=== PATIENT | male | born 1955 | race Caucasian/White ===

== ENCOUNTER 2017-02-20 06:55 | Day surgery (SDC) | payer BC ==
[~2017-02-20 06:55] MED LIST: Lactated Ringers 1,000 ML IV SCH; Lidocaine 1%/Sod Bicarbonate in NS 8.4% 1 ML Syringe IV PRN; Sodium Chloride 0.9% 10 ML Syringe FLUSH PRN
--- NOTE | 2017-02-20 07:22 | PCM.PREANE ---
Preanesthetic Assessment - Anesthesia/Transfusion/Family Hx Anesthesia History: Prior Anesthesia Without Reaction Type of Anesthesia Reaction: Unknown Family History of Anesthesia Reaction: No Transfusion History: No Prior Transfusion(s) Type of Transfusion Reactions: Reports: Unknown Intubation History: Unknown - Review of Systems General: No Symptoms Pulmonary: Other (pt has asthma, and non productive cough, VENUS with CPAP) Cardiovascular: Other (HTN controlled wit hemdication ) Gastrointestinal: Other (GERD) Neurological: No Symptoms Other: Reports: Easy Bruising - Physical Assessment NPO Status Date: 02/19/17 NPO Status Time: 22:00 Pulse: 75 O2 Sat by Pulse Oximetry: 97 Respiratory Rate: 16 Blood Pressure: 157/81 Temperature: 36.4 C Height: 1.68 m Weight: 98.883 kg ASA Class: 2 Mental Status: Alert & Oriented x3 Dentition: Reports: Normal Dentition Thyro-Mental Finger Breadths: 3 Mouth Opening Finger Breadths: 3 ROM/Head Extension: Limited/Partial (cervical neck fuision) Lungs: Clear to auscultation, Normal respiratory effort Cardiovascular: Regular Rate, Regular Rhythm - Allergies Allergies/Adverse Reactions: Allergies Allergy/AdvReac Type Severity Reaction Status Date / Time indomethacin Allergy Other Verified 02/19/17 17:24 - Blood Blood Available: No Product(s) Available: None - Anesthesia Plan Pre-Op Medication Ordered: Other - Acknowledgements Anesthesia Type Planned: MAC Pt an Appropriate Candidate for the Planned Anesthesia: Yes Alternatives and Risks of Anesthesia Discussed w Pt/Guardian: Yes Pt/Guardian Understands and Agrees with Anesthesia Plan: Yes PreAnesthesia Questionnaire HEENT History: Reports: Allergic rhinitis, Impaired vision Cardiovascular History: Reports: Hypertension Respiratory History: Reports: Asthma, Sleep apnea Gastrointestinal History: Reports: GERD, Other (see below) Other Gastrointestinal History: umbilical hernia Genitourinary History: Reports: None 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 Neurological History: Reports: None Psychiatric History: Reports: None Endocrine/Metabolic History: Reports: None Hematologic History: Reports: None Immunologic History: Reports: None Oncologic (Cancer) History: Reports: None Dermatologic History: Reports: None - Past Surgical History Head Surgeries/Procedures: Reports: None GI Surgical History: Reports: Colonoscopy, Hernia, inguinal Musculoskeletal Surgical History: Reports: Other (see below) Other Musculoskeletal Surgeries/Procedures:: neck surgery - SUBSTANCE USE Smoking Status *Q: Never Smoker Recreational Drug Use History: No - HOME MEDS Home Medications: Home Meds Albuterol Sulfate [Proair Hfa] 1 puff INH Q4H PRN 02/19/17 [History] Budesonide/Formoterol [Symbicort 160-4.5 MCG] 2 puff INH BID 02/19/17 [History] Fish Oil/[place]-3 Fatty Acids [Fish Oil 1,000 MG] 1 g PO DAILY 02/19/17 [History] Fluticasone Propionate [Flonase] 1 spray NASBOTH DAILY 02/19/17 [History] Losartan/Hydrochlorothiazide [Losartan-HCTZ 50-12.5 MG] 1 tab PO DAILY 02/19/17 [History] Multivitamin [Multivitamins] 1 tab PO DAILY 02/19/17 [History] Omeprazole Magnesium [Prilosec Otc] 20 mg PO DAILY 02/19/17 [History] Ondansetron [Zofran ODT] 4 mg PO TID PRN 02/19/17 [History] - CURRENT (IN HOUSE) MEDS Current Meds: Current Medications Lactated Ringer's (Ringers, Lactated) 1,000 mls @ 125 mls/hr IV ASDIRECTED NOVA Lidocaine/Sodium Bicarbonate (Buffered Lidocaine 1% In Ns 8.4%) 0.25 ml IV ONETIME PRN PRN Reason: Prior to IV Start Sodium Chloride (Saline Flush) 10 ml FLUSH ASDIRECTED PRN PRN Reason: Keep Vein Open Discontinued Medications Fentanyl (Sublimaze) Confirm Administered Dose 100 mcg .ROUTE .STK-MED ONE Stop: 02/20/17 07:31 Lidocaine HCl (Xylocaine-Mpf 1%) Confirm Administered Dose 4 mls @ as directed .ROUTE .STK-MED ONE Stop: 02/20/17 07:31 Propofol (Diprivan 20 Ml) Confirm Administered Dose 200 mg .ROUTE .STK-MED ONE Stop: 02/20/17 07:31
[2017-02-20] MEDS ORDERED: Lidocaine 1% 4 ML ONE (07:30)
[2017-02-20] MEDS ORDERED: fentaNYL 100 MCG/2 ML SDV ONE (07:30)
[2017-02-20] MEDS ORDERED: Propofol 200 MG/20 ML SDV ONE (07:30)
--- NOTE | 2017-02-20 08:06 | PCM.OPNOTE ---
- General Post-Op/Procedure Note Date of Surgery/Procedure: 02/20/17 Operative Procedure(s): colonoscopy with cold forceps polypectomy times 1 Findings: 1. small sigmoid polyp 2. sigmoid diverticulosis 3. internal hemorrhoids Pre Op Diagnosis: rectal bleeding Post-Op Diagnosis: 1. uncomplicated scattered small sigmoid diverticuli. 2. diminutive, less than 5 mm sigmoid polyp. 3. uncomplicated small internal hemorrhoids Anesthesia Technique: MAC, Moderate sedation Primary Surgeon: Bennie Kidd Pathology: diminutive sigmoid polyp, less than 5 mm EBL in mLs: 0 Complications: None Condition: Good Free Text/Narrative:: After adequate IV sedation and analgesia was obtained the patient was placed on his left side. Perianal inspection digital rectal examination were performed and were normal. Prostate was grossly normal. A lubricated colonoscope was inserted into the rectum then passed to the cecum without difficulty. The bowel preparation was excellent. The cecum, right colon, transverse, and descending colons were endoscopically normal with no mass lesions or inflammatory changes seen. The sigmoid had a 2-3 small diverticula that were uncomplicated and a diminutive polyp in the distal sigmoid, which was removed with cold forceps. The rectum revealed uncomplicated internal hemorrhoids in the retroflexed view. Air was removed, as I finished the procedure, which he tolerated well. Synthetic Department Supervisor photographs were taken for the patient and for the record.
--- NOTE | 2017-02-20 08:08 | PCM48HPAN ---
Post Anesthesia Note - EVALUATION WITHIN 48HRS OF ANESTHETIC Vital Signs in Normal Range: Yes Patient Participated in Evaluation: Yes Respiratory Function Stable: Yes Airway Patent: Yes Cardiovascular Function Stable: Yes Hydration Status Stable: Yes Pain Control Satisfactory: Yes Nausea and Vomiting Control Satisfactory: Yes Mental Status Recovered: Yes
[2017-02-20 08:09] VITALS: BP 150/84
== END 2017-02-20 08:29 | disposition home or self-care (01) ==
LOC: JD.SDS 06:55
PROVIDERS: ATTEND Surgery
DX: K63.5 Polyp of colon (principal); D12.5 Benign neoplasm of sigmoid colon; K57.30 Diverticulosis of large intestine without perforation or abscess without bleeding; K64.8 Other hemorrhoids; K21.9 Gastro-esophageal reflux disease without esophagitis; J20.9 Acute bronchitis, unspecified; J30.9 Allergic rhinitis, unspecified; J45.909 Unspecified asthma, uncomplicated; I10 Essential (primary) hypertension; R73.01 Impaired fasting glucose; R11.0 Nausea; G47.33 Obstructive sleep apnea (adult) (pediatric); Z99.89 Dependence on other enabling machines and devices; K42.9 Umbilical hernia without obstruction or gangrene; Z88.8 Allergy status to other drugs, medicaments and biological substances; Z79.899 Other long term (current) drug therapy
CPT/HCPCS: 45380; 88305; J3010; J7120; 00810; J2704

== ENCOUNTER 2021-10-15 23:43 | Emergency (ER) | payer BC ==
[2021-10-16 00:20] VITALS: BP 183/98; PULSE 88
[2021-10-16] MEDS ORDERED: Ondansetron 4 MG/2 ML SDV IVPUSH ONE (01:11)
[2021-10-16] MEDS ORDERED: diphenhydrAMINE 50 MG/ML SDV IVPUSH ONE (01:11)
[2021-10-16] MEDS ORDERED: Lactated Ringers 1,000 ML IV ONE (01:11)
--- NOTE | 2021-10-16 01:11 | EDM.PDOC ---
ED HPI GENERAL MEDICAL PROBLEM - General Chief Complaint: Headache Stated Complaint: HEADACHE Time Seen by Provider: 10/16/21 01:01 - History of Present Illness INITIAL COMMENTS - FREE TEXT/NARRATIVE: 66-year-old male presents the emergency room with a headache. This headache been there for 5 to 7 days. This pain has been getting worse especially over the last couple of days. Patient does not usually have headaches quite like this. He says he gets maybe 3-4 like this year but has frequent milder headaches. He has not had any fevers or chills. He has had some intermittent loose stools. He has not had the Covid vaccine or the flu shot this year. His headache is not been associated with fevers or chills or any other complaints at this time he said no areas of numbness weakness or areas of poor sensation. He has had some nausea associated with the headache and intermittent photophobia. Headache Pain Score (Numeric/FACES): 10 - Related Data Allergies Allergy/AdvReac Type Severity Reaction Status Date / Time indomethacin Allergy Shortness Verified 10/16/21 00:20 of Breath Home Meds: Home Meds Albuterol Sulfate [Proair Hfa] 1 puff INH Q4H PRN 02/19/17 [History] Budesonide/Formoterol [Symbicort 160-4.5 MCG] 2 puff INH BID 02/19/17 [History] Fish Oil/[place]-3 Fatty Acids [Fish Oil 1,000 MG] 1 g PO DAILY 02/19/17 [History] Fluticasone Propionate [Flonase] 1 spray NASBOTH DAILY 02/19/17 [History] Multivitamin [Multivitamins] 1 tab PO DAILY 02/19/17 [History] Omeprazole Magnesium [Prilosec Otc] 20 mg PO DAILY 02/19/17 [History] amLODIPine [Norvasc] 10 mg PO BID 10/16/21 [History] Past Medical History HEENT History: Reports: Allergic Rhinitis, Impaired Vision Cardiovascular History: Reports: Hypertension Respiratory History: Reports: Asthma, Sleep Apnea Gastrointestinal History: Reports: GERD, Other (See Below) Other Gastrointestinal History: umbilical hernia Genitourinary History: Reports: None 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: Reports: 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 Neurological History: Reports: None Psychiatric History: Reports: None Endocrine/Metabolic History: Reports: None Hematologic History: Reports: None Immunologic History: Reports: None Oncologic (Cancer) History: Reports: None Dermatologic History: Reports: None - Past Surgical History Head Surgeries/Procedures: Reports: None GI Surgical History: Reports: Colonoscopy, Hernia, Inguinal Musculoskeletal Surgical History: Reports: Other (See Below) Other Musculoskeletal Surgeries/Procedures:: neck surgery Social & Family History - Tobacco Use Tobacco Use Status *Q: Never Tobacco User ED ROS GENERAL - Review of Systems Review Of Systems: See Below Constitutional: Denies: Fever, Chills, Malaise HEENT: Reports: Other (Photophobia with bright lights) Respiratory: Reports: No Symptoms Cardiovascular: Reports: No Symptoms GI/Abdominal: Reports: Decreased Appetite : Reports: No Symptoms Musculoskeletal: Reports: No Symptoms Skin: Reports: No Symptoms Neurological: Reports: No Symptoms Psychiatric: Reports: No Symptoms Hematologic/Lymphatic: Reports: No Symptoms ED EXAM, GENERAL - Physical Exam Exam: See Below Exam Limited By: No Limitations General Appearance: Alert, No Apparent Distress Eye Exam: Bilateral Eye: EOMI, Normal Inspection, PERRL Ears: Normal External Exam, Normal Canal, Hearing Grossly Normal, Normal TMs Nose: Normal Inspection, Normal Mucosa, No Blood Throat/Mouth: Normal Inspection, Normal Lips, Normal Teeth, Normal Gums, Normal Oropharynx, Normal Voice, No Airway Compromise Head: Atraumatic, Normocephalic Neck: Normal Inspection, Supple, Non-Tender, Full Range of Motion Respiratory/Chest: No Respiratory Distress, Lungs Clear, Normal Breath Sounds, No Accessory Muscle Use, Chest Non-Tender Cardiovascular: Normal Peripheral Pulses, Regular Rate, Rhythm, No Edema, No Gallop, No JVD, No Murmur, No Rub GI/Abdominal: Normal Bowel Sounds, Soft, Non-Tender, No Organomegaly, No Distention, No Abnormal Bruit, No Mass Extremities: Normal Inspection Neurological: Alert, Oriented, CN II-XII Intact, Normal Cognition, Normal Reflexes, Other (All muscle groups are equal and appropriate in all extremities.) Psychiatric: Normal Affect, Normal Mood Skin Exam: Warm, Dry, Intact Lymphatic: No Adenopathy Course - Vital Signs Last Recorded V/S: Last Vital Signs Temp 35.9 C L 10/16/21 00:17 Pulse 88 10/16/21 00:17 Resp 16 10/16/21 00:17 BP 183/98 H 10/16/21 00:17 Pulse Ox 95 10/16/21 00:17 - Orders/Labs/Meds Orders: Active Orders 24 hr Category Date Time Status CORONAVIRUS COVID-19 ERIC [MOLEC] Stat Lab 10/16/21 01:42 Received Lactated Ringers [Ringers, Lactated] 1,000 ml Med 10/16/21 01:11 Active IV .BOLUS Medication Orders Lactated Ringer's (Ringers, Lactated) 1,000 mls @ 999 mls/hr IV .BOLUS ONE Stop: 10/16/21 02:11 Last Admin: 10/16/21 01:32 Dose: 999 mls/hr Documented by: DUSTY Meds: Medications Generic Name Dose Route Start Last Admin Trade Name Freq PRN Reason Stop Dose Admin Lactated Ringer's 1,000 mls @ 999 mls/hr 10/16/21 01:11 10/16/21 01:32 Ringers, Lactated IV 10/16/21 02:11 999 mls/hr .BOLUS ONE Administration Discontinued Medications Generic Name Dose Route Start Last Admin Trade Name Freq PRN Reason Stop Dose Admin Diphenhydramine HCl 50 mg 10/16/21 01:11 10/16/21 01:32 Diphenhydramine 50 Mg/Ml Sdv IVPUSH 10/16/21 01:12 50 mg ONETIME ONE Administration Ondansetron HCl 4 mg 10/16/21 01:11 10/16/21 01:32 Ondansetron 4 Mg/2 Ml Sdv IVPUSH 10/16/21 01:12 4 mg ONETIME ONE Administration - Re-Assessments/Exams Free Text/Narrative Re-Assessment/Exam: 10/16/21 02:16 Patient received Zofran Benadryl and a liter of fluid feels much better with the fluids nearly completely and we will discharge after the fluid is in. Departure - Departure Time of Disposition: 02:17 Disposition: Home, Self-Care 01 Clinical Impression: Cephalgia - Discharge Information Referrals: Lauryn Jane PA-C [Primary Care Provider] - Forms: ED Department Discharge Additional Instructions: Return to the emergency room with any questions problems or worsening symptoms. Go straight home and sleep off this headache. Follow-up with your regular healthcare provider as needed. Sepsis Event Note (ED) - Evaluation Sepsis Screening Result: No Definite Risk - Focused Exam Vital Signs: Vital Signs Temp Pulse Resp BP Pulse Ox 10/16/21 00:17 35.9 C L 88 16 183/98 H 95 - My Orders Last 24 Hours: My Active Orders 10/16/21 01:11 Lactated Ringers [Ringers, Lactated] 1,000 ml IV .BOLUS 10/16/21 01:42 CORONAVIRUS COVID-19 ERIC [MOLEC] Stat - Assessment/Plan Last 24 Hours: My Active Orders 10/16/21 01:11 Lactated Ringers [Ringers, Lactated] 1,000 ml IV .BOLUS 10/16/21 01:42 CORONAVIRUS COVID-19 ERIC [MOLEC] Stat
== END 2021-10-16 03:00 | disposition home or self-care (01) ==
LOC: JD.ED 23:43
DX: U07.1 COVID-19 (principal); I10 Essential (primary) hypertension; J45.909 Unspecified asthma, uncomplicated; K21.9 Gastro-esophageal reflux disease without esophagitis; Z88.1 Allergy status to other antibiotic agents; Z88.6 Allergy status to analgesic agent; Z79.899 Other long term (current) drug therapy
CPT/HCPCS: 87635; 96374; 96375; 99284; J1200; J2405; J7120; U0002

== ENCOUNTER 2023-05-11 00:30 | Emergency (ER) | payer MEDICARE, BC ==
[2023-05-11 02:33] VITALS: BP 142/79; PULSE 65
== END 2023-05-11 02:30 | disposition home or self-care (01) ==
LOC: JD.ED 00:30
DX: S20.469A Insect bite (nonvenomous) of unspecified back wall of thorax, initial encounter (principal); J45.909 Unspecified asthma, uncomplicated; I10 Essential (primary) hypertension; K21.9 Gastro-esophageal reflux disease without esophagitis; Z86.16 Personal history of COVID-19; Z79.899 Other long term (current) drug therapy; Z88.1 Allergy status to other antibiotic agents; W57.XXXA Bitten or stung by nonvenomous insect and other nonvenomous arthropods, initial encounter
CPT/HCPCS: 99281; 99283

== ENCOUNTER → 2023-08-01 | Day surgery (SDC) | payer MEDICARE, BC ==
[~2023-08-01] MED LIST changes: +Lidocaine 1% 4 ML ONE; -Lidocaine 1%/Sod Bicarbonate in NS 8.4% 1 ML Syringe IV PRN; +Midazolam 1 MG/ML 2 ML SDV ONE; +Propofol 200 MG/20 ML SDV ONE; +Sodium Chloride 0.9% 10 ML Syringe FLUSH SCH
[2023-08-01 10:58] VITALS: BP 124/72; PULSE 60
== END | disposition home or self-care (01) ==
LOC: JD.SDS 08:27
PROVIDERS: ATTEND Surgery
DX: K29.70 Gastritis, unspecified, without bleeding (principal); K63.5 Polyp of colon; K57.30 Diverticulosis of large intestine without perforation or abscess without bleeding; K64.8 Other hemorrhoids; K42.9 Umbilical hernia without obstruction or gangrene; K21.9 Gastro-esophageal reflux disease without esophagitis; J45.909 Unspecified asthma, uncomplicated; N40.0 Benign prostatic hyperplasia without lower urinary tract symptoms; M19.90 Unspecified osteoarthritis, unspecified site; I10 Essential (primary) hypertension; G47.33 Obstructive sleep apnea (adult) (pediatric); Z79.01 Long term (current) use of anticoagulants; Z88.8 Allergy status to other drugs, medicaments and biological substances; Z79.82 Long term (current) use of aspirin; Z79.899 Other long term (current) drug therapy; Z79.51 Long term (current) use of inhaled steroids; Z80.0 Family history of malignant neoplasm of digestive organs; Z79.1 Long term (current) use of non-steroidal anti-inflammatories (NSAID)
CPT/HCPCS: 82947; J2250; J2704; J3490; J7120

== ENCOUNTER 2023-10-08 08:06 | Emergency (ER) | payer MEDICARE, BC ==
[2023-10-08 08:26] VITALS: PULSE 72
[2023-10-08] MEDS ORDERED: Sodium Chloride 0.9% 10 ML Syringe FLUSH PRN (08:27)
[2023-10-08] MEDS ORDERED: Morphine 2 MG/ML SYRINGE IVPUSH ONE (08:28)
[2023-10-08] MEDS ORDERED: Orphenadrine 60 MG/2 ML Inj IV ONE (08:28)
[2023-10-08] MEDS ORDERED: Naloxone 0.4 MG/ML SDV IVPUSH PRN (08:28)
[2023-10-08 08:37] LABS: BASOPHILS ABSOLUTE AUTO 0.1 K/mm3 (0.0-0.2); BASOPHILS PERCENT AUTO 0.9 % (0.0-1.0); EOSINOPHILS ABSOLUTE AUTO 0.2 K/mm3 (0.0-0.4); EOSINOPHILS PERCENT AUTO 3.7 % (0.0-6.0); HEMATOCRIT 38.6 % (42.0-52.0); HEMOGLOBIN 13.1 gm/dl (14.0-18.0); IMMATURE GRAN ABSOLUTE AUTO 0.01 K/mm3 (0.00-0.05); IMMATURE GRAN PERCENT AUTO 0.2 % (0.0-0.4); LYMPHOCYTES ABSOLUTE AUTO 1.9 K/mm3 (1.0-4.8); LYMPHOCYTES PERCENT AUTO 28.9 % (24.0-44.0); MEAN CORPUSCULAR HEMOGLOBIN 29.4 pg (28.0-32.0); MEAN CORPUSCULAR HGB CONC 33.9 g/dl (32.0-36.0); MEAN CORPUSCULAR VOLUME 86.7 fl (83.0-99.0); MEAN PLATELET VOLUME 7.8 fl (9.4-12.4); MONOCYTES ABSOLUTE AUTO 0.7 K/mm3 (0.0-0.8); MONOCYTES PERCENT AUTO 10.6 % (0.0-8.0); NEUTROPHILS ABSOLUTE AUTO 3.6 K/mm3 (1.8-7.7); NEUTROPHILS PERCENT AUTO 55.7 % (41.0-71.0); PLATELET COUNT,PLT 261 K/mm3 (150-400); RED BLOOD CELL COUNT 4.45 M/mm3 (4.52-5.90); WHITE BLOOD CELL COUNT,WBC 6.41 K/mm3 (3.9-11.3)
[2023-10-08 08:59] LABS: A/G RATIO 1.1 (1-2); ALBUMIN 3.7 g/dl (3.4-5.0); ANION GAP 13.4 (5-15); BILIRUBIN TOTAL 0.4 mg/dL (0.2-1.0); BUN/CREATININE RATIO 22.7 (14-18); CALCIUM 9.1 mg/dL (8.5-10.1); CREATININE 1.1 mg/dL (0.7-1.3); EST CRCL DRUG DOSING (CG) 57.19 mL/min; POTASSIUM,K 4.4 mEq/L (3.5-5.1); PROTEIN TOTAL,TP 7.2 g/dl (6.4-8.2)
[2023-10-08 09:08] LABS: APPEARANCE,URINE CLEAR (Clear); BILIRUBIN,URINE NEGATIVE (Negative); COLOR,URINE YELLOW (Yellow); GLUCOSE,URINE NEGATIVE (Negative); KETONES,URINE NEGATIVE (Negative); LEUKOCYTE ESTERASE,URINE NEGATIVE (Negative); NITRITE,URINE NEGATIVE (Negative); OCCULT BLOOD,URINE 1+ (Negative); PROTEIN,URINE NEGATIVE (Negative); UROBILINOGEN,URINE 0.2 (0.2-1.0)
[2023-10-08 09:13] LABS: BACTERIA,URINE FEW /hpf (FEW); EPITHELIAL CELLS,URINE 0-5 /hpf (0-5); MUCUS,URINE FEW /hpf (FEW); WBC,URINE 0-5 /hpf (0-5)
[2023-10-08 10:15] VITALS: BP 143/85
== END 2023-10-08 10:11 | disposition home or self-care (01) ==
LOC: JD.ED 08:06
DX: M62.830 Muscle spasm of back (principal); I10 Essential (primary) hypertension; J45.909 Unspecified asthma, uncomplicated; K21.9 Gastro-esophageal reflux disease without esophagitis; I44.4 Left anterior fascicular block; Z86.16 Personal history of COVID-19; Z88.8 Allergy status to other drugs, medicaments and biological substances; Z79.899 Other long term (current) drug therapy
CPT/HCPCS: 36415; 71046; 80053; 81001; 83735; 84484; 85025; 93005; 96374; 96375; 99284; J2270; J2360; 93010

== ENCOUNTER 2024-06-23 17:54 | Emergency (ER) | payer MEDICARE ==
[2024-06-23 18:47] LABS: BASOPHILS ABSOLUTE AUTO 0.1 K/mm3 (0.0-0.2); BASOPHILS PERCENT AUTO 0.7 % (0.0-1.0); EOSINOPHILS ABSOLUTE AUTO 0.1 K/mm3 (0.0-0.4); EOSINOPHILS PERCENT AUTO 1.8 % (0.0-6.0); HEMATOCRIT 35.8 % (42.0-52.0); IMMATURE GRAN ABSOLUTE AUTO 0.03 K/mm3 (0.00-0.05); IMMATURE GRAN PERCENT AUTO 0.4 % (0.0-0.4); LYMPHOCYTES ABSOLUTE AUTO 2.1 K/mm3 (1.0-4.8); LYMPHOCYTES PERCENT AUTO 28.5 % (24.0-44.0); MEAN CORPUSCULAR HEMOGLOBIN 28.8 pg (28.0-32.0); MEAN CORPUSCULAR HGB CONC 33.5 g/dl (32.0-36.0); MEAN CORPUSCULAR VOLUME 86.1 fl (83.0-99.0); MEAN PLATELET VOLUME 8.1 fl (9.4-12.4); MONOCYTES ABSOLUTE AUTO 0.8 K/mm3 (0.0-0.8); MONOCYTES PERCENT AUTO 10.5 % (0.0-8.0); NEUTROPHILS ABSOLUTE AUTO 4.3 K/mm3 (1.8-7.7); NEUTROPHILS PERCENT AUTO 58.1 % (41.0-71.0); PLATELET COUNT,PLT 262 K/mm3 (150-400); RED BLOOD CELL COUNT 4.16 M/mm3 (4.52-5.90); WHITE BLOOD CELL COUNT,WBC 7.31 K/mm3 (3.9-11.3)
[2024-06-23 18:56] LABS: APPEARANCE,URINE CLEAR (Clear); BILIRUBIN,URINE NEGATIVE (Negative); COLOR,URINE YELLOW (Yellow); GLUCOSE,URINE NEGATIVE (Negative); KETONES,URINE 1+ (Negative); LEUKOCYTE ESTERASE,URINE NEGATIVE (Negative); NITRITE,URINE NEGATIVE (Negative); OCCULT BLOOD,URINE TRACE-INTACT (Negative); PH,URINE 5.5 (5.0-8.0); PROTEIN,URINE NEGATIVE (Negative); UROBILINOGEN,URINE 0.2 (0.2-1.0)
[2024-06-23 19:02] LABS: BACTERIA,URINE FEW /hpf (FEW); MUCUS,URINE FEW /hpf (FEW); SQUAMOUS EPITHELIAL CELLS,UR NOT SEEN /hpf (0-5); WBC,URINE 0-5 /hpf (0-5)
[2024-06-23 19:11] LABS: A/G RATIO 1.3 (1-2); ALBUMIN 3.8 g/dl (3.4-5.0); ANION GAP 15.3 (5-15); BILIRUBIN TOTAL 0.4 mg/dL (0.2-1.0); BUN/CREATININE RATIO 15.4 (14-18); CALCIUM 8.6 mg/dL (8.5-10.1); CREATININE 1.3 mg/dL (0.7-1.3); EST CRCL DRUG DOSING (CG) 45.99 mL/min; MAGNESIUM 1.7 mg/dL (1.8-2.4); POTASSIUM,K 4.3 mEq/L (3.5-5.1); PROTEIN TOTAL,TP 6.7 g/dl (6.4-8.2)
[2024-06-23] MEDS: Acetaminophen 325 MG Tab PO ONE (19:23)
[2024-06-23] MEDS: Lidocaine 1% 10 ML MDV INJECT ONE (21:33)
[2024-06-23 22:00] VITALS: BP 127/95; PULSE 71
== END 2024-06-23 21:58 | disposition home or self-care (01) ==
LOC: JD.ED 17:54
DX: S06.5X0A Traumatic subdural hemorrhage without loss of consciousness, initial encounter (principal); I10 Essential (primary) hypertension; K21.9 Gastro-esophageal reflux disease without esophagitis; Z88.8 Allergy status to other drugs, medicaments and biological substances; Z79.899 Other long term (current) drug therapy; Z86.16 Personal history of COVID-19; X50.9XXA Other and unspecified overexertion or strenuous movements or postures, initial encounter
CPT/HCPCS: 12002; 36415; 70450; 80053; 80307; 81001; 83735; 84484; 85025; 93005; 99284; A9270; J3490

== ENCOUNTER 2024-08-27 06:59 | Day surgery (SDC) | payer MEDICARE ==
[2024-08-27] MEDS ORDERED: Propofol 200 MG/20 ML SDV ONE ×3 (08:59)
[2024-08-27] MEDS ORDERED: Midazolam 1 MG/ML 2 ML SDV ONE (09:01)
[2024-08-27] MEDS ORDERED: Lidocaine 2% 5 ML SDV ONE (09:14)
[2024-08-27] MEDS ORDERED: Lactated Ringers 1,000 ML IV ONE (09:30)
[2024-08-27 10:50] VITALS: BP 120/62; PULSE 62
== END 2024-08-27 11:15 | disposition home or self-care (01) ==
LOC: JD.SDS 06:59
PROVIDERS: ATTEND Surgery
DX: Z12.11 Encounter for screening for malignant neoplasm of colon (principal); K57.30 Diverticulosis of large intestine without perforation or abscess without bleeding; K64.8 Other hemorrhoids; D12.5 Benign neoplasm of sigmoid colon; D12.7 Benign neoplasm of rectosigmoid junction; K62.1 Rectal polyp; K63.5 Polyp of colon; I25.10 Atherosclerotic heart disease of native coronary artery without angina pectoris; E11.9 Type 2 diabetes mellitus without complications; J45.909 Unspecified asthma, uncomplicated; Z79.82 Long term (current) use of aspirin; Z79.899 Other long term (current) drug therapy
CPT/HCPCS: 45380; 45385; J2250; J2704; J7120; 00811; J3490